=== PATIENT | female | born 2000 | race Two or more races ===

== ENCOUNTER 2023-12-29 11:28 | Emergency (ER) | payer OTHER, SELFPAY ==
[2023-12-29 11:32] VITALS: BP 113/62; PULSE 88; O2SAT 99
[2023-12-29 11:36] VITALS: BP 120/67; PULSE 62; RESP 18; TEMP 36.5; O2SAT 99; BMI 31.1
--- NOTE | 2023-12-29 11:46 | PC.NURSE ---
Patient reports started not feeling well on , right side of throat pain and nausea and vomiting. 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 Right side of throat painful to touch, right side of throat with black area, states was tested for strep on and it was negative
[2023-12-29 12:07] LABS: MANUAL DIFF FLAG NO
--- NOTE | 2023-12-29 12:11 | ED.GENADULT ---
HPI - General Adult General Chief complaint: General Medical Stated complaint: THROAT SORE/ABSCESS,BODYACHES X2 DAYS PER EMS Time Seen by Provider: 12/29/23 12:02 Source: patient Mode of arrival: ambulatory Limitations: no limitations History of Present Illness ED Provider: DR. Marcum HPI narrative: 23-year-old female came in for evaluation of right-sided sore throat times few days, patient took a picture of her throat shows right tonsillar enlargement with dark discoloration on the tonsil that is improving and less swollen today patient overall is less symptomatic than 2 days ago, no fever, no chills, no difficulty breathing, no difficulty swallowing, no voice change. No sick contacts, no recent travel. Related Data Allergies Allergy/AdvReac Type Severity Reaction Status Date / Time No Known Allergies Allergy Verified 12/29/23 11:39 Review of Systems Review of Systems: All other systems are reviewed and are negative Constitutional: Reports as per HPI and Reports no additional constitutional complaints Eyes: Reports as per HPI and Reports no additional eye complaints Reports system reviewed and no additional complaints, except as documented Cardiovascular: Reports as per HPI and Reports no additional cardiovascular complaints Respiratory: Reports as per HPI and Reports no additional respiratory complaints Gastrointestinal: Reports as per HPI and Reports no additional gastrointestinal complaints Genitourinary: Reports no additional female genitourinary complaints Musculoskeletal: Reports no additional musculoskeletal complaints Skin/Breast: Reports system reviewed and no additional complaints, except as docu Psychiatric: Reports no additional psychiatric complaints Endocrine: Reports no additional endocrine complaints Hematologic/Lymphatic: Reports no additional hematologic/lymphatic complaints Allergic/Immunologic: Reports no additional allergic/immunologic complaints Reports system reviewed and no additional complaints, except as documented and Reports Abnormal speech present [facility] Social History Social History Alcohol intake: never Smoked in Last 30 Days: No Use of substances other than those prescribed or required for medical reasons: No Advance Directives: No Advance Directives Information Provided: No Physical Exam ED Vital Signs: Vital Signs - 24 hr 12/29/23 11:36 Temperature 97.7 F Pulse Rate 62 Respiratory Rate 18 Blood Pressure 120/67 Pulse Oximetry 99 Oxygen Delivery Method Room Air BMI result Body Mass Index 31.1 Vital signs have been reviewed and appear to be correct. Blood pressure elevated. Heart rate normal. Respiratory rate normal. Temperature normal. Oxygen saturation normal. Appearance: Alert. Oriented X3. No acute distress. Head: Normal external exam. Normocephalic. Atraumatic. No Macias signs noted. No raccoon eyes noted Eyes: PERRLA. EOMI. Conjunctiva and sclera normal. Eyelids normal. ENT: TM's Normal. Bilateral pharyngeal erythema, enlargement of right tonsils with no exudate. Uvula midline. Moist mucous membranes. No trismus noted. No drooling noted. No muffled voice noted. Neck: Normal inspection. Neck supple. FROM. No adenopathy. Thyroid Normal. No meningeal signs. No neck mass noted. CVS: Normal heart rate and rhythm. Heart sound normal. No murmurs noted. Pulses normal throughout. Respiratory: No respiratory distress. Painless inspiration. Breath sounds normal. No wheezes/rales/rhonchi noted. Chest nontender. No accessory muscle usage noted or decreased air movement noted. Abdomen: Soft and nontender. Bowel sounds normal in all 4 quadrants. No distention noted. No organomegaly noted. No visible injury noted. Back: No CVA tenderness. Full range of motion noted. Skin: Skin warm and dry. Normal skin color. Normal skin turgor. No rashes/lesions/lacerations noted. Extremities: No lower extremity edema. Extremities exhibit normal range of motion. Extremities nontender. Neuro: Oriented X 3. Cranial nerve exam: II-XII are grossly intact No motor deficit. No sensory deficit. Reflexes normal. Course Reevaluation(s) Reevaluation #1: 23-year-old female came in with sore throat, patent airway, no abscess is appreciated on the clinical exam, uvula is midline, no stridor. Negative for strep pharyngitis, negative for mononucleosis, negative for other upper respiratory viral infection. As patient instructed to continue using Listerine for mouth gargle 3 times a day and seek ENT consultation if not feeling improved. Time: 15:26 Medical Decision Making Differential Diagnosis Differential Diagnoses: The differential diagnosis associated with the presentation includes (Strep pharyngitis, [employer], mononucleosis, airway compromise, viral pharyngitis.) Admission/Observation Consideration of admission/observation: Escalation of care including admission/observation considered Lab Data MDM Lab Attestation statement: I reviewed the patient's lab results. 12/29/23 12:02 12/29/23 12:02 Labs: Lab Results 12/29/23 12/29/23 Range/Units 12:02 12:20 WBC 12.8 H (4.8-10.8) X10*3/uL RBC 3.73 L (4.20-5.50) X10*6/uL Hgb 12.0 (12.0-16.0) g/dl Hct 33.2 L (37.0-47.0) % MCV 89.0 (80.0-98.0) fL MCH 32.2 (27.0-33.0) pg MCHC 36.1 H (31.0-35.0) g/dl RDW 12.8 (11.0-16.0) % Plt Count 217 (160-400) X10*3/uL MPV 9.5 (9.4-12.3) fL Immature Gran % (Auto) 0.5 H (0.0-0.4) % Neut % (Auto) 76.6 H (45-73) % Lymph % (Auto) 13.0 L (20-40) % Power % (Auto) 9.1 (2-11) % Eos % (Auto) 0.5 (0-4) % Baso % (Auto) 0.3 (0-2) % Lymph # (Auto) 1.7 (1.2-4.9) X10*3/uL Power # (Auto) 1.2 (0.1-1.2) X10*3/uL Eos # (Auto) 0.1 (0.0-0.4) X10*3/uL Baso # (Auto) 0.0 (0.0-0.2) X10*3/uL Abs Immat Gran (auto) 0.06 H (0.00-0.03) X10*3/uL Absolute Neuts (auto) 9.8 H (2.0-8.3) x10*3/uL Absolute Nucleated RBC 0.000 (0.0-0.012) X10*3/uL Nucleated RBC % (auto) 0.0 (0.0-0.2) /100WBC Sodium 141 (135-145) mmol/L Potassium 3.4 (3.3-5.1) mmol/L Chloride 108 (96-108) mmol/L Carbon Dioxide 25 (22-29) mmol/L Anion Gap 11 L (12-20) BUN 20 H (9-16) mg/dL Creatinine 0.72 (0.5-1.4) mg/dL Estim Creat Clear Calc 124.9 Estimated GFR > 60 Random Glucose 90 (60-115) mg/dL Lactic Acid 1.1 (0.5-2.0) mmol/L Calcium 9.1 (8.4-10.2) mg/dL Monoscreen Negative (Negative) Influenza Type A (PCR) NEGATIVE (Negative) Influenza Type B (PCR) NEGATIVE (Negative) RSV RNA Qual (PCR) NEGATIVE (Negative) SARS-CoV-2 RNA (RT-PCR) NEGATIVE (Negative) S. pyogenes GrpA ASHA Negative (Negative) Discharge Plan Discharge Clinical Impression: Pharyngitis Patient Disposition: Home, Self-Care Instructions: Pharyngitis (ED) Additional Instructions: Gargle your throat with Listerine. Every 8 hours. Seek immediate medical attention if unable to swallow your saliva, any voice change, difficulty breathing. Referrals: Tripp Mendez [Physician] - Print Language: Japanese
[2023-12-29 12:22] LABS: Lactic Acid 1.1 mmol/L (0.5-2.0)
[2023-12-29 12:25] LABS: Anion Gap 11 (12-20); Basophils Percent Auto 0.3 % (0-2); Blood Urea Nitrogen 20 mg/dL (9-16); Calcium 9.1 mg/dL (8.4-10.2); Carbon Dioxide 25 mmol/L (22-29); Chloride 108 mmol/L (96-108); Creatinine Clr Calc Pharmacy 124.9; Eosinophils Absolute Auto 0.1 X10*3/uL (0.0-0.4); Eosinophils Percent Auto 0.5 % (0-4); Estimated Glomerular Filt Rate > 60; Glucose Random 90 mg/dL (60-115); Hematocrit 33.2 % (37.0-47.0); Imm Gran Abs Auto 0.06 X10*3/uL (0.00-0.03); Imm Gran Pct Auto 0.5 % (0.0-0.4); Lymphocytes Absolute Auto 1.7 X10*3/uL (1.2-4.9); Mean Corpuscular HGB Conc 36.1 g/dl (31.0-35.0); Mean Corpuscular Hemoglobin 32.2 pg (27.0-33.0); Mean Platelet Volume 9.5 fL (9.4-12.3); Monocytes Absolute Auto 1.2 X10*3/uL (0.1-1.2); Monocytes Percent Auto 9.1 % (2-11); Neutrophils Absolute Auto 9.8 x10*3/uL (2.0-8.3); Neutrophils Percent Auto 76.6 % (45-73); Platelet Count 217 X10*3/uL (160-400); Potassium 3.4 mmol/L (3.3-5.1); Red Blood Count 3.73 X10*6/uL (4.20-5.50); Red Cell Distribution Width 12.8 % (11.0-16.0); Sodium 141 mmol/L (135-145); White Blood Count 12.8 X10*3/uL (4.8-10.8)
--- NOTE | 2023-12-29 12:33 | PC.NURSE ---
Per provider 2nd set o f blood cultures not needed
[2023-12-29 12:50] LABS: IDNOW Serial# 08D9AD1C; Strep A Nucleic Acid Negative (Negative)
[2023-12-29 13:18] LABS: Influenza A PCR NEGATIVE (Negative); Influenza B PCR NEGATIVE (Negative); Resp Syncy Virus RNA Qual PCR NEGATIVE (Negative); SARS COV2 PCR INHOUSE NEGATIVE (Negative)
[2023-12-29 13:24] LABS: Monotest Negative (Negative)
[2023-12-29 15:54] VITALS: BP 120/67; PULSE 62; RESP 18; TEMP 36.5; O2SAT 99
== END 2023-12-29 15:54 | disposition home or self-care (01) ==
PROVIDERS: Emergency Provider Emergency Medicine
DX: J02.9 Acute pharyngitis, unspecified (principal); R11.2 Nausea with vomiting, unspecified; Z03.818 Encounter for observation for suspected exposure to other biological agents ruled out
CPT/HCPCS: 0241U; 36415; 80048; 83605; 85025; 86308; 87040; 87651; 99283; 99284

== ENCOUNTER 2024-06-04 14:30 | Emergency (ER) | payer OTHER, SELFPAY ==
[2024-06-04 14:46] VITALS: BP 118/63; PULSE 66; RESP 16; TEMP 36.2; O2SAT 98; BMI 27.5
--- NOTE | 2024-06-04 14:48 | ED_ITS ---
HPI - Female Genitourinary General Chief complaint: Urogenital-Female Stated complaint: std testing Related Data Allergies Allergy/AdvReac Type Severity Reaction Status Date / Time No Known Allergies Allergy Verified 06/04/24 14:48 [facility] Social History Social History Alcohol intake: never Do you have a plan to hurt others: No Plan Physical Exam Vital Signs: Vital Signs: Last Vital Signs Temp 97.2 F 06/04/24 14:46 Pulse 66 06/04/24 14:46 Resp 16 06/04/24 14:46 BP 118/63 06/04/24 14:46 Pulse Ox 98 06/04/24 14:46 O2 Del Method Room Air 06/04/24 14:46 BMI result Body Mass Index 27.5 Course Course Course Narrative: This is a Rapid Medical Examination (RME) performed by Yariel Frye PA-C in [facility]. Full HPI, ROS, assessment and treatment plan per primary provider in the Main ED. 23 yo female here w/ increased vaginal odor, dysuria, and lower abd discomfort x few days. recent unprotected intercourse w/ new partner. LMP 2 wks ago. Plan: UA, CTNG, u preg Reevaluation(s) Reevaluation #1: Patient left the emergency department before myself or any of the other clinicians could review or explain physical exam findings, test results, need or lack there of for additional testing, treatment options, or a treatment plan. Medical Decision Making Lab Data Labs: Lab Results 06/04/24 Range/Units 15:30 Urine Color Yellow Urine Appearance Clear Urine pH 6.5 (5.0-9.0) Ur Specific [place] 1.025 (1.005-1.025) Urine Protein Negative (Neg-Trace) mg/dL Urine Glucose (UA) Negative (Negative) mg/dL Urine Ketones Negative (Negative) mg/dL Urine Blood Negative (Negative) Urine Nitrite Negative (Negative) Ur Leukocyte Esterase Trace H (Negative) Urine RBC 0-2 (0-2) /HPF Urine WBC 0-5 (0-5) /HPF Ur Squamous Epith Cells 0-2 (0-2) /HPF Urine Bacteria Trace (None Seen) Hyaline Casts 0-2 (0-2) /LPF Urine Test NEGATIVE (NEGATIVE) Chlam trachomat DNA PCR NOT DETECTED (Not Detect.) N.gonorrhoeae DNA (PCR) NOT DETECTED (Not Detect.) Discharge Plan Discharge Clinical Impression: Encounter for assessment of STD exposure Patient Disposition: Left W/O Completing Treatment
[2024-06-04 16:00] LABS: Appearance Urine Clear; Color Urine Yellow; Glucose Urine UA Negative (Negative); Leukocyte Esterase Urine Trace (Negative); Nitrite Urine Negative (Negative); PH 6.5 (5.0-9.0); Specific Gravity - Urine 1.025 (1.005-1.025); UMIC TRIGGER UACC YES; Urine Blood Negative (Negative); Urine Ketones Negative (Negative); Urine Protein Negative (Neg-Trace)
[2024-06-04 16:01] LABS: UPreg QC Valid YES; Urine Pregnancy NEGATIVE (NEGATIVE)
[2024-06-04 16:59] LABS: Bacteria Urine Trace (None Seen); Hyaline Casts Urine 0-2 /LPF (0-2); RBC Urine 0-2 /HPF (0-2); Squamous Epithelial Cell Urine 0-2 /HPF (0-2); WBC Urine 0-5 /HPF (0-5)
[2024-06-04 18:55] LABS: CT PCR NOT DETECTED (Not Detect.); NG PCR NOT DETECTED (Not Detect.)
== END 2024-06-04 21:16 | disposition left against medical advice (07) ==
LOC: HO.ED 20:27
PROVIDERS: Physician Assistant Medical; Emergency Provider Emergency Medicine Emergency Medical Services
DX: Z11.3 Encounter for screening for infections with a predominantly sexual mode of transmission (principal); R30.0 Dysuria; R10.30 Lower abdominal pain, unspecified
CPT/HCPCS: 81001; 81003; 81025; 87491; 87591; 99282; 99283